=== PATIENT | male | born 1960 | race Caucasian/White ===

== ENCOUNTER 2017-02-26 15:18 | Emergency (ER) | payer BC ==
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
[2017-02-26 15:36] VITALS: BP 161/85; PULSE 99; RESP 18; TEMP 98.2; O2SAT 92
[2017-02-26] MEDS ORDERED: Bacitracin 500 Units/gm Oint Foilpak UD TOP ONE (15:50)
[2017-02-26] MEDS ORDERED: Bacitracin 500 Units/gm Oint Foilpak UD ONE (15:53)
== END 2017-02-26 16:07 | disposition home or self-care (01) ==
LOC: C.ER 15:18
DX: S00.31XA Abrasion of nose, initial encounter (principal); S00.81XA Abrasion of other part of head, initial encounter; Y04.0XXA Assault by unarmed brawl or fight, initial encounter; F10.10 Alcohol abuse, uncomplicated; Y90.9 Presence of alcohol in blood, level not specified; R04.0 Epistaxis